=== PATIENT | female | born 1960 | race American Indian/Alaskan Native ===

== ENCOUNTER 2018-10-21 22:28 | Inpatient (IN) | payer OTHER, SELFPAY ==
[2018-10-21] MEDS ORDERED: ASPIRIN ONE (22:42)
--- NOTE | 2018-10-21 22:44 | Emergency Department Report ---
ED Altered Mental Status HPI - General Stated Complaint: BODY WEAKNESS/POSS STROKE Time Seen by Provider: 10/21/18 22:40 Source: patient Mode of arrival: Ambulatory Limitations: Altered Mental Status - History of Present Illness Initial Comments: Patient is a 58-year-old female that presents emergency room with acute onset of confusion and weakness. Patient is confused. Patient is A& O 1. Patient complains of right arm pain. Patient is moving all extremities. Patient am bulatory with assist to a wheelchair. Family bedside. History per family. Daughter states that the patient began complaining of chest pain at 8 PM tonight and approximately 45 minutes ago she became confused. Daughter states that the chest pain in the center of her chest radiating to both arms. Daughter states the pain was moderate. Daughter states that she also has shaking spells from time to time. MD Complaint: altered mental status, confusion, weakness -: Sudden Severity: severe Consistency of Symptoms: waxing and waning Associated Symptoms: chest pain, weakness, difficulty walking. denies: cough, shortness of breath, foul smelling urine - Related Data Allergies Allergy/AdvReac Type Severity Reaction Status Date / Time No Known Allergies Allergy Verified 10/22/18 01:27 ED Review of Systems ROS: Stated complaint: BODY WEAKNESS/POSS STROKE Other details as noted in HPI Comment: Unobtainable due to pts medical conditions ED Past Medical Hx - Past Medical History Previous Medical History?: Yes Hx Hypertension: Yes Hx Psychiatric Treatment: Yes (bipolar) - Surgical History Past Surgical History?: No - Family History Family history: no significant - Social History Smoking Status: Never Smoker Substance Use Type: None ED Physical Exam - General Limitations: Altered Mental Status General appearance: alert, in no apparent distress - Head Head exam: Present: atraumatic, normocephalic - Eye Eye exam: Present: normal appearance, PERRL Pupils: Present: normal accommodation - ENT ENT exam: Present: mucous membranes moist - Neck Neck exam: Present: normal inspection - Respiratory Respiratory exam: Present: normal lung sounds bilaterally. Absent: respiratory distress, wheezes, rales - Cardiovascular Cardiovascular Exam: Present: regular rate, normal rhythm. Absent: systolic murmur, diastolic murmur, rubs, gallop - GI/Abdominal GI/Abdominal exam: Present: soft, normal bowel sounds. Absent: distended, tenderness, guarding - Rectal Rectal exam: Present: deferred - Extremities Exam Extremities exam: Present: normal inspection, full ROM - Back Exam Back exam: Present: normal inspection, full ROM - Neurological Exam Neurological exam: Present: alert, altered - Psychiatric Psychiatric exam: Present: normal affect, normal mood - Skin Skin exam: Present: warm, dry, intact, normal color. Absent: rash - Assessment Assessment Interval: Baseline - Level of Consciousness 1a. Level of Consciousness: alert/keenly responsive - LOC Questions 1b. LOC Questions: answers 1 question correctly - LOC Command 1c. LOC Commands: performs tasks correctly - Best Gaze 2. Best Gaze: normal - Visual 3. Visual: no visual loss - Facial Palsy 4. Facial Palsy: normal symmetrical movement - Motor Arm 5a. Motor Arm Left: no drift 5b. Motor Arm Right: no drift - Motor Leg 6a. Motor Leg Left: no drift 6b. Motor Leg Right: no drift - Limb Ataxia 7. Limb Ataxia: absent - Sensory 8. Sensory: normal - Best Language 9. Best Language: no aphasia - Dysarthria 10. Dysarthria: normal - Extinction and Inattention 11. Extinction/Inattention: no abnormality - Scoring Total Score: 1 Stroke Severity: Minor Stroke ED Course Vital Signs 10/21/18 10/21/18 10/21/18 22:46 23:16 23:30 Pulse Rate 60 58 L 63 Respiratory 12 21 17 Rate Blood Pressure O2 Sat by Pulse 98 99 98 Oximetry 10/21/18 10/22/18 10/22/18 23:45 00:00 01:07 Pulse Rate 66 61 61 Respiratory 17 20 13 Rate Blood Pressure 162/96 162/96 162/96 O2 Sat by Pulse 96 99 97 Oximetry - Reevaluation(s) Reevaluation #1: Based on patient's exam and history.. We will consult tele-neurology 10/21/18 22:43 Patient sent for head CT 10/21/18 22:56 Discussed all results with the family and patient. Patient will be admitted to the hospitalist service. Family agrees with plan of care. 10/22/18 00:23 - Consultations Consultation #1: Discussed case with neurologist, Dr. Campbell. Neurologist states he will see the patient after her head CT. 10/21/18 22:[address] done and neurologist is seeing the patient bedside monitor 10/21/18 23:25 Discussed case with neurologist. Neurologist recommends admission for seizure workup and EEG. 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 Rule out epileptic activity with EEG - attempt to capture spells. Recommendations: - EEG - attempt to capture spells with prolonged monitoring if possible - MRI brain wo - toxic/metabolic screening - seizure precautions - observation - neurology consult - discussed with ED MD Consultation #2: Hospitalist consulted for admission. Hospitalist to admit patient. Hospitalist to assume care patient. 10/22/18 00:24 - Lab Data Result diagrams: 10/21/18 23:33 10/21/18 23:33 Lab Results 10/21/18 10/21/18 10/21/18 Range/Units 23:33 23:33 23:33 WBC 5.9 (4.5-11.0) K/mm3 RBC 4.48 (3.65-5.03) M/mm3 Hgb 12.2 (10.1-14.3) gm/dl Hct 38.3 (30.3-42.9) % MCV 86 (79-97) fl MCH 27 L (28-32) pg MCHC 32 (30-34) % RDW 13.0 L (13.2-15.2) % Plt Count 191 (140-440) K/mm3 Lymph % (Auto) 33.2 (13.4-35.0) % Ocean % (Auto) 6.7 (0.0-7.3) % Eos % (Auto) 2.2 (0.0-4.3) % Baso % (Auto) 0.8 (0.0-1.8) % Lymph # 2.0 (1.2-5.4) K/mm3 Ocean # 0.4 (0.0-0.8) K/mm3 Eos # 0.1 (0.0-0.4) K/mm3 Baso # 0.0 (0.0-0.1) K/mm3 Seg Neutrophils % 57.1 (40.0-70.0) % Seg Neutrophils # 3.3 (1.8-7.7) K/mm3 Sodium 142 (137-145) mmol/L Potassium 4.1 (3.6-5.0) mmol/L Chloride 105.9 (98-107) mmol/L Carbon Dioxide 25 (22-30) mmol/L Anion Gap 15 mmol/L BUN 12 (7-17) mg/dL Creatinine 1.0 (0.7-1.2) mg/dL Estimated GFR > 60 ml/min BUN/Creatinine Ratio 12 % Glucose 109 H (65-100) mg/dL Lactic Acid 1.00 (0.7-2.0) mmol/L Calcium 8.8 (8.4-10.2) mg/dL Total Bilirubin 0.20 (0.1-1.2) mg/dL AST 14 (5-40) units/L ALT 12 (7-56) units/L Alkaline Phosphatase 116 (35-129) units/L Total Creatine Kinase (30-135) units/L Troponin T (0.00-0.029) ng/mL Total Protein 6.3 (6.3-8.2) g/dL Albumin 3.9 (3.9-5) g/dL Albumin/Globulin Ratio 1.6 % Acetaminophen (10.0-30.0) ug/mL Plasma/Serum Alcohol (0-0.07) % 10/21/18 10/21/18 10/21/18 Range/Units 23:33 23:33 23:33 WBC (4.5-11.0) K/mm3 RBC (3.65-5.03) M/mm3 Hgb (10.1-14.3) gm/dl Hct (30.3-42.9) % MCV (79-97) fl MCH (28-32) pg MCHC (30-34) % RDW (13.2-15.2) % Plt Count (140-440) K/mm3 Lymph % (Auto) (13.4-35.0) % Ocean % (Auto) (0.0-7.3) % Eos % (Auto) (0.0-4.3) % Baso % (Auto) (0.0-1.8) % Lymph # (1.2-5.4) K/mm3 Ocean # (0.0-0.8) K/mm3 Eos # (0.0-0.4) K/mm3 Baso # (0.0-0.1) K/mm3 Seg Neutrophils % (40.0-70.0) % Seg Neutrophils # (1.8-7.7) K/mm3 Sodium (137-145) mmol/L Potassium (3.6-5.0) mmol/L Chloride (98-107) mmol/L Carbon Dioxide (22-30) mmol/L Anion Gap mmol/L BUN (7-17) mg/dL Creatinine (0.7-1.2) mg/dL Estimated GFR ml/min BUN/Creatinine Ratio % Glucose (65-100) mg/dL Lactic Acid (0.7-2.0) mmol/L Calcium (8.4-10.2) mg/dL Total Bilirubin (0.1-1.2) mg/dL AST (5-40) units/L ALT (7-56) units/L Alkaline Phosphatase (35-129) units/L Total Creatine Kinase 100 (30-135) units/L Troponin T < 0.010 (0.00-0.029) ng/mL Total Protein (6.3-8.2) g/dL Albumin (3.9-5) g/dL Albumin/Globulin Ratio % Acetaminophen < 5.0 L (10.0-30.0) ug/mL Plasma/Serum Alcohol < 0.01 (0-0.07) % - EKG Data -: EKG Interpreted by Me EKG shows normal: sinus rhythm, axis, intervals, QRS complexes, ST-T waves Rate: normal - Radiology Data Radiology results: report reviewed, image reviewed interpreted by me: Normal limits chest x-ray PROCEDURE: CT HEAD/BRAIN WO CON TECHNIQUE: Computerized tomography of the head was performed without contrast material. CT DOSE LENGTH PRODUCT: 928.1 mGycm HISTORY: Altered Mental Status COMPARISONS: None . FINDINGS: Skull and scalp: Normal . Paranasal sinuses: Mucosal thickening is noted involving the right ethmoid sinuses. . Ventricles and subarachnoid spaces: Normal . Cerebrum: No evidence of hemorrhage, acute infarction or mass . Cerebellum and brainstem: No evidence of hemorrhage, acute infarction or mass . Vasculature: Normal . Other: None . ASPECTS: 10 IMPRESSION: No acute intracranial abnormality Chronic ethmoid sinusitis. - Medical Decision Making Patient is a 58-year-old female that presents to emergency room with multiple complaints. Patient was occluded chest pain, altered mental status and confusion, seizure like activity and shaking. Telemetry neurology was consulted during ER stay. Total neurology recommends admission and an EEG as an inpatient as well as an MRI. Recommendations received. Patient was admitted to the hospitalist service. Patient's labs unremarkable. Patient's head CT negative. Patient chest x-ray negative. - Differential Diagnosis seizure. Confusion. EMS. Chest pain. ACS. Psychogenic Critical Care Time: Yes Critical care attestation.: If time is entered above; I have spent that time in minutes in the direct care of this critically ill patient, excluding procedure time. Critical Care Time: 45 minutes ED Disposition Clinical Impression: Confusion, Weakness, Seizure-like activity Altered mental state Qualifiers: Altered mental status type: unspecified Qualified Code(s): R41.82 - Altered mental status, unspecified Chest pain Qualifiers: Chest pain type: unspecified Qualified Code(s): R07.9 - Chest pain, unspecified Disposition: DC-09 OP ADMIT IP TO THIS HOSP Is pt being admited?: Yes Does the pt Need Aspirin: No Condition: Critical Time of Disposition: 00:23
[2018-10-21] MEDS ORDERED: NACL 0.9% 1000 ML 1,000 ML IV ONE (22:49)
--- NOTE | 2018-10-21 23:22 | Cat Scan Report ---
PROCEDURE: CT HEAD/BRAIN WO CON TECHNIQUE: Computerized tomography of the head was performed without contrast material. CT DOSE LENGTH PRODUCT: 928.1 mGycm HISTORY: Altered Mental Status COMPARISONS: None . FINDINGS: Skull and scalp: Normal . Paranasal sinuses: Mucosal thickening is noted involving the right ethmoid sinuses. . Ventricles and subarachnoid spaces: Normal . Cerebrum: No evidence of hemorrhage, acute infarction or mass . Cerebellum and brainstem: No evidence of hemorrhage, acute infarction or mass . Vasculature: Normal . Other: None . ASPECTS: 10 IMPRESSION: No acute intracranial abnormality Chronic ethmoid sinusitis. This document is electronically signed by Thomas Crocker MD., October 21 2018 11:20:50 PM ET
--- NOTE | 2018-10-21 23:36 | Consultation ---
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 Rule out epileptic activity with EEG - attempt to capture spells. Recommendations: - EEG - attempt to capture spells with prolonged monitoring if possible - MRI brain wo - toxic/metabolic screening - seizure precautions - observation - neurology consult - discussed with ED MD CC: AMS History of Present Illness: STAT consult called by ED 58 year old woman brought by EMS for a spell. Patient's daughter is at bedside. Daughter states since she was little (daughter now 34) that the patient has experienced spells of shaking when she is under stress. These happen very frequently and for the past 2 weeks have happened daily. Patient refuses to have these evaluated. Patient will have eyes open and have fine non- rhythmic/asynchronous shaking of the extremities. Tonight the patient was at her granddaughter's recital. Daughter stepped away and the patient had a spell. Bystanders called 911 when daughter was away. Patient is now seemingly confused. Daughter states this is typical of her spells. Daughter states patient has been under a lot of stress the past 2 weeks. Diagnostic Testing: CT head wo - nothing acute Vital Signs: Reviewed in EMR Exam: She is laying in bed with eyes closed, opens them to name/voice. She will follow commands. She tends to perseverate. Speech is clear. Attending to both sides. She makes odd movements with her mouth. Gaze centered with full horizontal motility. Blinks to threat OU. Face symmetric. She will sustain antigravity in the limbs. She can tell us sensation is symmetric in the limbs. No obvious ataxia. Medical Decision Making: - Extensive number of diagnosis or management options are considered above. - Extensive amount of complex data reviewed. - High risk of complication and/or morbidity or mortality are associated with differential diagnostic considerations above. - There may be uncertain outcome and increased probability of prolonged functional impairment or high probability of severe prolonged functional impairment associated with some of these differential diagnosis. Medical Data Reviewed: 1.Data reviewed include clinical labs, radiology, Medical Tests; 2.Tests results discussed w/performing or interpreting physician; 3.Obtaining/reviewing old medical records; 4.Obtaining case history from another source; 5.Independent review of image, tracing or specimen. Patient was informed the Neurology Consult would happen via telehealth (remote video) and consented to receiving care in this manner. Medications and Allergies Active Meds: Active Medications Sodium Chloride (Nacl 0.9% 1000 Ml) 1,000 mls @ 999 mls/hr IV BOLUS ONE Stop: 10/21/18 23:49
[2018-10-22 00:04] LABS: Basophils % (Auto) 0.8 % (0.0-1.8); Eosinophils # (Auto) 0.1 K/mm3 (0.0-0.4); Eosinophils % (Auto) 2.2 % (0.0-4.3); Hematocrit 38.3 % (30.3-42.9); Hemoglobin 12.2 gm/dl (10.1-14.3); Lymphocytes % (Auto) 33.2 % (13.4-35.0); Mean Corpuscular HGB Conc 32 % (30-34); Mean Corpuscular Volume 86 fl (79-97); Monocytes # (Auto) 0.4 K/mm3 (0.0-0.8); Monocytes % (Auto) 6.7 % (0.0-7.3); Platelet Count 191 K/mm3 (140-440); Red Blood Count 4.48 M/mm3 (3.65-5.03)
[2018-10-22 00:19] LABS: Alanine Aminotransferase 12 units/L (7-56); Albumin 3.9 g/dL (3.9-5); BUN/Creatinine Ratio 12; Blood Urea Nitrogen 12 mg/dL (7-17); Calcium 8.8 mg/dL (8.4-10.2); Hemolysis Index 1
--- NOTE | 2018-10-22 00:36 | XRay Report ---
PROCEDURE: XR CHEST 1V AP TECHNIQUE: A portable upright view of the chest was submitted. HISTORY: Altered Mental Status COMPARISONS: None FINDINGS: The heart size and mediastinum appear normal. The lungs are clear. Pleural fluid is not seen. The bon es and soft tissues appear well-maintained. IMPRESSION: No acute cardiopulmonary process.. This document is electronically signed by Miguel Farris MD., October 22 2018 12:34:19 AM ET
--- NOTE | 2018-10-22 00:58 | History and Physical Report ---
History of Present Illness Date of examination: 10/22/18 History of present illness: 58-year-old woman with a history of hypertension, bipolar her previous family member however these family members at bedside denies that she has any medical problems, she was brought to the emergency room complaining of chest pain. Pain is in the epigastric area which she described as someone standing on her chest, constant, intensity 5/10, no radiation, can't identify exacerbating factors. Admits to shortness of breath, no nausea vomiting, diaphoresis or palpitation. Also complained that the right arm has been weak. Family members state that she became confused and started having these jerking of the upper body. The patient if she had any seizures today, she started shaking the left arm profusely, she was alert during this episode PAST MEDICAL HISTORY: PAST SURGICAL HISTORY: Gastric bypass SOCIAL HISTORY: Denies alcohol, tobacco, drugs FAMILY HISTORY: Hypertension Medications and Allergies Allergies Allergy/AdvReac Type Severity Reaction Status Date / Time No Known Allergies Allergy Verified 10/22/18 01:27 Home Medications Medication Instructions Recorded Confirmed Last Taken Type Melatonin 10 mg PO QHS #30 capsule 10/25/18 Unknown Rx levETIRAcetam [Keppra TAB] 750 mg PO BID #60 tablet 10/25/18 Unknown Rx Exam - Physical Exam Narrative exam: Gen. appearance: Patient lying in bed, no apparent distress HEENT: Normocephalic, atraumatic, pupils equally round and reactive to light, extraocular movement intact, and no sclericterus,. No JVD or thyromegaly or nodule,neck supple, no carotid bruit ,mucous membranes moist, no exudate or erythema Heart: S1, S2, regular rate and rhythm Lungs: Clear bilaterally, breathing comfortable Abdomen: Positive bowel sounds, non-tender, nondistended, no organomegaly Extremity:no edema cyanosis, clubbing Skin: no rash, dry, warm Neuro: Oriented 3, cranial nerves II-12 intact, speech is fluent, motor poor effort, difficult to assess Results - Labs CBC & Chem 7: 10/21/18 23:33 10/21/18 23:33 Labs: Abnormal lab results 10/21/18 10/21/18 10/21/18 Range/Units 23:33 23:33 23:33 MCH 27 L (28-32) pg RDW 13.0 L (13.2-15.2) % Glucose 109 H (65-100) mg/dL Acetaminophen < 5.0 L (10.0-30.0) ug/mL - Imaging and Cardiology Chest x-ray: report reviewed CT Scan - head: report reviewed Assessment and Plan Assessment Right upper extremity weakness chest pain Pseudoseizure and Hypertension ? Bipolar Plan Admit to medicine Obtain MRI of the head and neck, echo, stress test Check cardiac enzymes Consult neurology, PT, OT Start aspirin, statin DVT prophylaxis
[2018-10-22] MEDS ORDERED: ZOFRAN IV PRN (01:01)
[2018-10-22] MEDS ORDERED: REGLAN PO PRN (01:01)
[2018-10-22] MEDS ORDERED: MILK OF MAGNESIA PO PRN (01:01)
[2018-10-22] MEDS ORDERED: DULCOLAX PR PRN (01:01)
[2018-10-22] MEDS ORDERED: SODIUM CHLORIDE FLUSH SYRINGE 10 ML IV PRN (01:01)
[2018-10-22] MEDS ORDERED: TYLENOL ONE (01:16)
[2018-10-22] MEDS: ASPIRIN PO SCH ×2 (01:51→10:31)
[2018-10-22 02:12] LABS: Bilirubin,Urine NEG (Negative); Blood,Urine NEG (Negative); Color,Urine Yellow (Yellow); Mucus,Urine FEW /HPF; Protein,Urine <15 mg/dL mg/dL (Negative)
[2018-10-22 02:14] LABS: Amphetamine Screen,Urine PRESUMPTIVE NEGATIVE; Benzodiazepines Screen,Urine PRESUMPTIVE NEGATIVE; Cannabinoid Screen,Urine PRESUMPTIVE NEGATIVE; Cocaine Screen,Urine PRESUMPTIVE NEGATIVE; Methadone Screen,Urine PRESUMPTIVE NEGATIVE; Opiate Screen,Urine PRESUMPTIVE NEGATIVE
[2018-10-22 02:23] LABS: Creatine Kinase MB < 1.0 ng/mL (0.0-4.0)
[2018-10-22] MEDS: TYLENOL PO PRN ×2 (08:42→14:26)
[2018-10-22] MEDS ORDERED: LOVENOX SUB-Q SCH (10:00)
[2018-10-22] MEDS: LOVENOX SUB-Q SCH (10:32)
--- NOTE | 2018-10-22 11:03 | Progress Note ---
Subjective Date of service: 10/22/18 Interval history: see my note on the patient I am inclined to believe this is spinal cord MS based do not see rash of zoster this should be considered as well Thanks explained dx and w/u process to patient did review the ED notes no additional comment Objective - Vital Sign Vital Signs - 12hr 10/21/18 10/21/18 10/21/18 23:16 23:30 23:45 Temperature Pulse Rate 58 L 63 66 Respiratory 21 17 17 Rate Blood Pressure 162/96 O2 Sat by Pulse 99 98 96 Oximetry 10/22/18 10/22/18 10/22/18 00:00 00:15 00:30 Temperature Pulse Rate 61 60 66 Respiratory 20 16 12 Rate Blood Pressure 162/96 155/91 155/91 O2 Sat by Pulse 99 96 97 Oximetry 10/22/18 10/22/18 10/22/18 00:46 01:07 01:15 Temperature Pulse Rate 59 L 61 57 L Respiratory 19 13 14 Rate Blood Pressure 163/77 162/96 153/78 O2 Sat by Pulse 96 97 85 Oximetry 10/22/18 10/22/18 10/22/18 01:31 01:45 02:01 Temperature Pulse Rate 63 58 L 62 Respiratory 12 15 16 Rate Blood Pressure 142/66 142/66 142/66 O2 Sat by Pulse 98 96 98 Oximetry 10/22/18 10/22/18 10/22/18 02:15 02:31 02:45 Temperature Pulse Rate 70 67 61 Respiratory 13 14 14 Rate Blood Pressure 142/66 142/66 142/66 O2 Sat by Pulse 97 99 97 Oximetry 10/22/18 10/22/18 10/22/18 03:01 03:15 03:31 Temperature Pulse Rate 62 72 66 Respiratory 12 13 14 Rate Blood Pressure 142/66 142/66 135/72 O2 Sat by Pulse 98 96 99 Oximetry 10/22/18 10/22/18 10/22/18 03:45 04:01 04:11 Temperature Pulse Rate 56 L 63 68 Respiratory 17 16 11 L Rate Blood Pressure 135/72 131/69 131/69 O2 Sat by Pulse 98 87 98 Oximetry 10/22/18 10/22/18 04:21 08:14 Temperature 97.6 F Pulse Rate 55 L 52 L Respiratory 15 16 Rate Blood Pressure 131/69 130/74 O2 Sat by Pulse 97 Oximetry - Laboratory Findings CBC and BMP: 10/21/18 23:33 10/21/18 23:33 Abnormal Lab Findings: Abnormal Labs 10/21/18 10/21/18 10/21/18 23:33 23:33 23:33 MCH 27 L RDW 13.0 L Glucose 109 H Acetaminophen < 5.0 L
[2018-10-22] MEDS ORDERED: ATIVAN ONE (13:25)
[2018-10-22] MEDS ORDERED: ATIVAN IV ONE (13:53)
--- NOTE | 2018-10-22 14:56 | Consultation ---
HISTORY OF PRESENT ILLNESS: This 58-year-old black female who was at a ____ one of her relatives. Apparently, she had the sudden onset of a very intense tingling of the fingers of her hand and a quickly developed pain in her chest, shoulder and may have had developed headache and pain on the right side. She experienced difficulty breathing, chest discomfort was noted. She was then transported to the hospital by family members seen in the Emergency Room. She was noted to be alert and stable. She had a CT scan of the head which was unremarkable. Teleneurology consult was obtained. I reviewed those findings and the patient was further assessed. At this point, she feels somewhat better, still has a vague discomfort of the right arm, right face. No headache. She is fully alert, conscious and responsive. Examination reveals her to have no focal weakness. Cranial nerves are intact. Speech is clear. Neck is supple, no tremors and no asterixis. She has some slight neck discomfort on the right side. I did examine her arm. I do not see any evidence of zoster appearing on the arm or shoulder area or in the facial or neck area. IMPRESSION: This patient's onset of symptoms are certainly curious. She takes no medications, does not have any chronic medical problems. She is a healthy 58-year-old person that otherwise would have no reason to have the onset of such symptoms. I am struck by the fact that there was initially a segmental radicular component to the discomfort, which almost indicates that this would have to be spinal cord in origin as the generally a radicular type symptoms are not seen based on the brain based phenomena. In addition, she also had chest pain and some neck pain at the same time, which to me would be very atypical for a STOCK CUTTER lesion within the sensory nucleus of the thalamus or any cortical sensory structures. Therefore, more directly attention is paid to the spinal cord, but nonetheless, this could also be a brainstem sensory nucleus and may represent symptoms of multiple sclerosis, given her lack of additional history. We would recommend getting an MRI of the spinal cord of the brain and further assess the patient's condition. JOB# [id number] BEVERLY/EMORY
[2018-10-22] MEDS: KEPPRA PO SCH ×2 (16:02→23:24)
[2018-10-22] MEDS ORDERED: KEPPRA 750 MG in NACL 0.9% 100 ML IV ONE (23:45)
[2018-10-23 07:30] LABS: Chol/HDL Ratio 3.75 %
--- NOTE | 2018-10-23 08:04 | Progress Note ---
Subjective Date of service: 10/23/18 Interval history: nurse called me last evening and described episode that sounded like focal seizure therefore Keppra started... still need EED and MRI of brain and spinal cord this is being addressd as this could still be Multiple Sclerosis Objective - Vital Sign Vital Signs - 12hr 10/22/18 10/22/18 10/22/18 20:41 21:00 21:05 Temperature 98.2 F Pulse Rate 93 H 79 Respiratory 18 Rate Blood Pressure 127/68 O2 Sat by Pulse 91 99 Oximetry 10/22/18 10/23/18 10/23/18 22:00 00:07 05:00 Temperature 97.5 F L Pulse Rate 65 54 L Respiratory 20 18 Rate Blood Pressure 138/77 O2 Sat by Pulse 99 97 Oximetry 10/23/18 05:58 Temperature 97.6 F Pulse Rate 55 L Respiratory 18 Rate Blood Pressure 119/59 O2 Sat by Pulse 97 Oximetry - Laboratory Findings CBC and BMP: 10/21/18 23:33 10/21/18 23:33 Abnormal Lab Findings: Abnormal Labs 10/21/18 10/21/18 10/21/18 23:33 23:33 23:33 MCH 27 L RDW 13.0 L Glucose 109 H LDL Cholesterol Direct Acetaminophen < 5.0 L 10/23/18 06:29 MCH RDW Glucose LDL Cholesterol Direct 157 H Acetaminophen
[2018-10-23] MEDS: TYLENOL PO PRN (08:34)
--- NOTE | 2018-10-23 11:06 | Magnetic Resonance Report ---
MRI BRAIN WITHOUT CONTRAST: 10/23/18 CLINICAL: Stroke. COMPARISON: 10/21/18 CT Head TECHNIQUE: Axial diffusion, T1, T2, gradient echo T2*, coronal and axial FLAIR and sagittal T1 sequences on a 1.5 Arianna magnet. FINDINGS: Normal ventricles and sulci. No restricted diffusion. A single tiny right frontoparietal white matter focal hyperintensity on FLAIR and T2. No other abnormal signal. No chronic microbleeds on the gradient echo sequence. No mass or mass effect. No hemorrhage, edema or extra-axial collection. Normal pituitary and optic chiasm. The brainstem and cerebellum are normal. Intact vascular flow voids. Bilateral ethmoid sinusitis with mucoperiosteal thickening. The rest of the sinuses are clear. The orbits, and soft tissues are normal. Normal calvarium and skull base. IMPRESSION: No evidence of acute/subacute infarct or hemorrhage. A single nonspecific right frontoparietal white matter focal hyperintensity on FLAIR and T2. Ethmoid sinusitis.
--- NOTE | 2018-10-23 11:21 | Magnetic Resonance Report ---
MRA HEAD WITHOUT CONTRAST: 10/23/18 CLINICAL: Stroke. TECHNIQUE: Axial 3-D [id number] MR angiography of the [place] with review of axial source images. FINDINGS: Intact [place] with no aneurysm, stenosis or occlusion. Symmetric blood flow in the anterior, middle and posterior cerebral arteries. Normal basilar and vertebral arteries. IMPRESSION: Normal study.
[2018-10-23] MEDS: LOVENOX SUB-Q SCH (11:23)
[2018-10-23] MEDS: KEPPRA PO SCH ×2 (11:23→21:24)
[2018-10-23] MEDS: ASPIRIN PO SCH (11:23)
--- NOTE | 2018-10-23 12:05 | Magnetic Resonance Report ---
MRI CERVICAL SPINE WITHOUT CONTRAST: 10/23/18 07:37:00 CLINICAL: Right arm pain. TECHNIQUE: Sagittal T1,T2 and STIR and axial gradient T2* sequences on a 1.5 Arianna magnet. FINDINGS:Motion degrades the quality of the exam on the sagittal STIR and sagittal T1 sequences. Normal vertebral body height and alignment. Moderate degenerative disc disease with anterior osteophytes at C4-5 and C5-6 and mild disc space narrowing at C5-6. Uniform decreased disc signal at all levels. Normal marrow signal. No bone lesion. Cerebellar tonsils are normal position. Spinal cord is normal size with normal signal. C2-3: Intact. C3-4:Moderate circumferential disc bulge. Right facet hypertrophy and a moderate size right uncal and foraminal osteophyte producing narrowing of the right neural foramen. C4-5: Moderate circumferential disc bulge. Bilateral uncal osteophytes and foraminal osteophytes, right larger than left producing moderate bilateral neural foraminal narrowing, right greater than left. C5-6:Intact. C6-7:Intact. C7-T1:Intact. IMPRESSION: 1. Moderate degenerative disc disease with disc bulges and osteophytes producing neural foraminal narrowing at C4-5 and C5-6. The greatest narrowing is on the right at C5-6. 2. No significant spinal canal stenosis and no cord lesion.
[2018-10-23] MEDS: ATIVAN IV PRN ×2 (13:12→23:28)
--- NOTE | 2018-10-23 13:32 | Progress Note ---
Assessment and Plan Assessment and plan: Questionable new seizure -On Keppra -MRI brain negative for acute findings -MRI cervical spine showed degenerative disc disease C4-C6 -EEG pending -Neurology following Chest pain, rule out ACS -Serial troponin levels negative -Stress test canceled due to recurrent seizure -Echocardiogram pending Hypertension -Controlled Disposition: For discharge when medically stable History Interval history: It was reported that patient had seizure overnight for which she was started on Keppra. No other new complaints Hospitalist Physical - Constitutional Vitals: Temp Pulse Resp BP Pulse Ox 98.3 F 76 18 136/84 96 10/23/18 12:21 10/23/18 12:21 10/23/18 12:21 10/23/18 08:29 10/23/18 08:29 General appearance: Present: no acute distress - EENT Eyes: Present: PERRL, EOM intact ENT: hearing intact, clear oral mucosa - Neck Neck: Present: supple - Respiratory Respiratory effort: normal Respiratory: bilateral: CTA - Cardiovascular Rhythm: regular Heart Sounds: Present: S1 & S2 - Extremities Extremities: No edema - Abdominal General gastrointestinal: soft, non-tender, normal bowel sounds - Integumentary Integumentary: Present: clear, warm, dry - Neurologic Neurologic: moves all extremities Results - Labs CBC & Chem 7: 10/21/18 23:33 10/21/18 23:33 Labs: Laboratory Last Values WBC 5.9 K/mm3 (4.5-11.0) 10/21/18 23:33 RBC 4.48 M/mm3 (3.65-5.03) 10/21/18 23:33 Hgb 12.2 gm/dl (10.1-14.3) 10/21/18 23:33 Hct 38.3 % (30.3-42.9) 10/21/18 23:33 MCV 86 fl (79-97) 10/21/18 23:33 MCH 27 pg (28-32) L 10/21/18 23:33 MCHC 32 % (30-34) 10/21/18 23:33 RDW 13.0 % (13.2-15.2) L 10/21/18 23:33 Plt Count 191 K/mm3 (140-440) 10/21/18 23:33 Lymph % (Auto) 33.2 % (13.4-35.0) 10/21/18 23:33 [place] % (Auto) 6.7 % (0.0-7.3) 10/21/18 23:33 Eos % (Auto) 2.2 % (0.0-4.3) 10/21/18 23:33 Baso % (Auto) 0.8 % (0.0-1.8) 10/21/18 23:33 Lymph # 2.0 K/mm3 (1.2-5.4) 10/21/18 23:33 [place] # 0.4 K/mm3 (0.0-0.8) 10/21/18 23:33 Eos # 0.1 K/mm3 (0.0-0.4) 10/21/18 23:33 Baso # 0.0 K/mm3 (0.0-0.1) 10/21/18 23:33 Seg Neutrophils % 57.1 % (40.0-70.0) 10/21/18 23:33 Seg Neutrophils # 3.3 K/mm3 (1.8-7.7) 10/21/18 23:33 Sodium 142 mmol/L (137-145) 10/21/18 23:33 Potassium 4.1 mmol/L (3.6-5.0) 10/21/18 23:33 Chloride 105.9 mmol/L (98-107) 10/21/18 23:33 Carbon Dioxide 25 mmol/L (22-30) 10/21/18 23:33 Anion Gap 15 mmol/L 10/21/18 23:33 BUN 12 mg/dL (7-17) 10/21/18 23:33 Creatinine 1.0 mg/dL (0.7-1.2) 10/21/18 23:33 Estimated GFR > 60 ml/min 10/21/18 23:33 BUN/Creatinine Ratio 12 % 10/21/18 23:33 Glucose 109 mg/dL (65-100) H 10/21/18 23:33 Lactic Acid 1.00 mmol/L (0.7-2.0) 10/21/18 23:33 Calcium 8.8 mg/dL (8.4-10.2) 10/21/18 23:33 Total Bilirubin 0.20 mg/dL (0.1-1.2) 10/21/18 23:33 AST 14 units/L (5-40) 10/21/18 23:33 ALT 12 units/L (7-56) 10/21/18 23:33 Alkaline Phosphatase 116 units/L (35-129) 10/21/18 23:33 Total Creatine Kinase 86 units/L (30-135) 10/22/18 07:19 CK-MB (CK-2) 1.0 ng/mL (0.0-4.0) 10/22/18 07:19 CK-MB (CK-2) Rel Index 1.1 (0-4) 10/22/18 07:19 Troponin T < 0.010 ng/mL (0.00-0.029) 10/22/18 07:19 Total Protein 6.3 g/dL (6.3-8.2) 10/21/18 23:33 Albumin 3.9 g/dL (3.9-5) 10/21/18 23:33 Albumin/Globulin Ratio 1.6 % 10/21/18 23:33 Triglycerides 59 mg/dL (2-149) 10/23/18 06:29 Cholesterol 199 mg/dL (50-199) 10/23/18 06:29 LDL Cholesterol Direct 157 mg/dL (50-130) H 10/23/18 06:29 HDL Cholesterol 53 mg/dL (40-59) 10/23/18 06:29 Cholesterol/HDL Ratio 3.75 % 10/23/18 06:29 Urine Color Yellow (Yellow) 10/22/18 01:30 Urine Turbidity Slightly-cloudy (Clear) 10/22/18 01:30 Urine pH 5.0 (5.0-7.0) 10/22/18 01:30 Ur Specific [place] 1.025 (1.003-1.030) 10/22/18 01:30 Urine Protein <15 mg/dl mg/dL (Negative) 10/22/18 01:30 Urine Glucose (UA) Neg mg/dL (Negative) 10/22/18 01:30 Urine Ketones Tr mg/dL (Negative) 10/22/18 01:30 Urine Blood Neg (Negative) 10/22/18 01:30 Urine Nitrite Neg (Negative) 10/22/18 01:30 Urine Bilirubin Neg (Negative) 10/22/18 01:30 Urine Urobilinogen 4.0 mg/dL (<2.0) 10/22/18 01:30 Ur Leukocyte Esterase Neg (Negative) 10/22/18 01:30 Urine WBC (Auto) 3.0 /HPF (0.0-6.0) 10/22/18 01:30 Urine RBC (Auto) 1.0 /HPF (0.0-6.0) 10/22/18 01:30 U Epithel Cells (Auto) 6.0 /HPF (0-13.0) 10/22/18 01:30 Urine Mucus Few /HPF 10/22/18 01:30 Urine Opiates Screen Presumptive negative 10/22/18 01:30 Urine Methadone Screen Presumptive negative 10/22/18 01:30 Acetaminophen < 5.0 ug/mL (10.0-30.0) L 10/21/18 23:33 Ur Barbiturates Screen Presumptive negative 10/22/18 01:30 Ur Phencyclidine Scrn Presumptive negative 10/22/18 01:30 Ur Amphetamines Screen Presumptive negative 10/22/18 01:30 U Benzodiazepines Scrn Presumptive negative 10/22/18 01:30 Urine Cocaine Screen Presumptive negative 10/22/18 01:30 U Marijuana (THC) Screen Presumptive negative 10/22/18 01:30 Drugs of Abuse Note Disclamer 10/22/18 01:30 Plasma/Serum Alcohol < 0.01 % (0-0.07) 10/21/18 23:33 Active Medications - Current Medications Current Medications: Generic Name Dose Route Start Last Admin Trade Name Freq PRN Reason Stop Dose Admin Acetaminophen 650 mg 10/22/18 01:01 10/23/18 08:34 Tylenol PO 650 mg Q4H PRN Administration Pain, Mild (1-3) Aspirin 325 mg 10/21/18 23:00 10/23/18 11:23 Aspirin PO 325 mg QDAY LEONID Administration Atorvastatin Calcium 40 mg 10/22/18 22:00 10/22/18 23:24 Lipitor PO Not Given QHS [facility] Bisacodyl 10 mg 10/22/18 01:01 Dulcolax [place] QDAY PRN Constipation Enoxaparin Sodium 40 mg 10/22/18 10:00 10/23/18 11:23 Lovenox SUB-Q 40 mg QDAY@1000 LEONID Administration Levetiracetam 750 mg 10/22/18 15:40 10/23/18 11:23 Keppra PO 750 mg BID LEONID Administration Lorazepam 1 mg 10/22/18 21:56 10/23/18 13:12 Ativan IV 1 mg Q4H PRN Administration Seizures Magnesium Hydroxide 30 ml 10/22/18 01:01 Milk Of Magnesia PO Q4H PRN Constipation Metoclopramide HCl 10 mg 10/22/18 01:01 Reglan PO Q6H PRN Nausea And Vomiting Ondansetron HCl 4 mg 10/22/18 01:01 Zofran IV Q8H PRN Nausea And Vomiting Sodium Chloride 10 ml 10/22/18 01:01 Sodium Chloride Flush Syringe 10 Ml IV PRN PRN LINE FLUSH
[2018-10-23] MEDS: PROTONIX PO SCH (16:11)
--- NOTE | 2018-10-23 16:21 | Progress Note ---
Subjective Date of service: 10/23/18 Interval history: MRI shows disc disease and radiculopathy the MRI of brain shows single white matter " lesion" on the right side which DOES NOT fit with symptoms suspect spinal radiculopathy of right C5-6 can go home Objective - Vital Sign Vital Signs - 12hr 10/23/18 10/23/18 10/23/18 05:00 05:58 08:29 Temperature 97.6 F Pulse Rate 54 L 55 L 70 Pulse Rate [ Apical] Pulse Rate [ Left Radial] Pulse Rate [ Right Radial] Respiratory 18 18 Rate Blood Pressure 119/59 136/84 O2 Sat by Pulse 97 96 Oximetry 10/23/18 10/23/18 10/23/18 08:30 10:00 12:21 Temperature 98.1 F 98.3 F Pulse Rate 76 Pulse Rate [ 76 Apical] Pulse Rate [ 76 Left Radial] Pulse Rate [ 76 Right Radial] Respiratory 18 18 Rate Blood Pressure O2 Sat by Pulse 99 Oximetry - Laboratory Findings CBC and BMP: 10/21/18 23:33 10/21/18 23:33 Abnormal Lab Findings: Abnormal Labs 10/21/18 10/21/18 10/21/18 23:33 23:33 23:33 MCH 27 L RDW 13.0 L Glucose 109 H LDL Cholesterol Direct Acetaminophen < 5.0 L 10/23/18 06:29 MCH RDW Glucose LDL Cholesterol Direct 157 H Acetaminophen
[2018-10-24] MEDS: ASPIRIN PO SCH (10:53)
[2018-10-24] MEDS: KEPPRA PO SCH ×2 (10:53→22:00)
[2018-10-24] MEDS: LOVENOX SUB-Q SCH (10:54)
[2018-10-24] MEDS: PROTONIX PO SCH (11:06)
[2018-10-24] MEDS: TYLENOL PO PRN ×2 (14:41→22:06)
--- NOTE | 2018-10-24 14:44 | Progress Note ---
Assessment and Plan Assessment and plan: Questionable new onset seizure -Stable on oral Keppra -MRI brain negative for acute findings -MRI cervical spine showed degenerative disc disease C4-C6 -EEG pending -Neurology signed off Chest pain, rule out ACS -Serial troponin levels negative -Stress test rescheduled for tomorrow due to recent seizure -Echocardiogram showed EF of 50-55% with diastolic dysfunction Hypertension -Controlled Disposition: For discharge tomorrow if stress test is negative History Interval history: Pt has no new complaints. No seizure reported overnight Hospitalist Physical - Constitutional Vitals: Temp Pulse Resp BP Pulse Ox 97.5 F L 73 18 112/54 98 10/24/18 12:43 10/24/18 12:43 10/24/18 12:43 10/24/18 12:43 10/24/18 12:43 General appearance: Present: no acute distress - EENT Eyes: Present: PERRL, EOM intact ENT: hearing intact, clear oral mucosa - Neck Neck: Present: supple - Respiratory Respiratory effort: normal Respiratory: bilateral: CTA - Cardiovascular Rhythm: regular Heart Sounds: Present: S1 & S2 - Extremities Extremities: No edema - Abdominal General gastrointestinal: soft, non-tender, normal bowel sounds - Integumentary Integumentary: Present: clear, warm, dry - Neurologic Neurologic: CNII-XII intact Results - Labs CBC & Chem 7: 10/21/18 23:33 10/21/18 23:33 Labs: Laboratory Last Values WBC 5.9 K/mm3 (4.5-11.0) 10/21/18 23:33 RBC 4.48 M/mm3 (3.65-5.03) 10/21/18 23:33 Hgb 12.2 gm/dl (10.1-14.3) 10/21/18 23:33 Hct 38.3 % (30.3-42.9) 10/21/18 23:33 MCV 86 fl (79-97) 10/21/18 23:33 MCH 27 pg (28-32) L 10/21/18 23:33 MCHC 32 % (30-34) 10/21/18 23:33 RDW 13.0 % (13.2-15.2) L 10/21/18 23:33 Plt Count 191 K/mm3 (140-440) 10/21/18 23:33 Lymph % (Auto) 33.2 % (13.4-35.0) 10/21/18 23:33 [place] % (Auto) 6.7 % (0.0-7.3) 10/21/18 23:33 Eos % (Auto) 2.2 % (0.0-4.3) 10/21/18 23:33 Baso % (Auto) 0.8 % (0.0-1.8) 10/21/18 23:33 Lymph # 2.0 K/mm3 (1.2-5.4) 10/21/18 23:33 [place] # 0.4 K/mm3 (0.0-0.8) 10/21/18 23: Eos # 0.1 K/mm3 (0.0-0.4) 10/21/18 23: Baso # 0.0 K/mm3 (0.0-0.1) 10/21/18 23:33 Seg Neutrophils % 57.1 % (40.0-70.0) 10/21/18 23:33 Seg Neutrophils # 3.3 K/mm3 (1.8-7.7) 10/21/18 23:33 Sodium 142 mmol/L (137-145) 10/21/18 23:33 Potassium 4.1 mmol/L (3.6-5.0) 10/21/18 23:33 Chloride 105.9 mmol/L (98-107) 10/21/18 23:33 Carbon Dioxide 25 mmol/L (22-30) 10/21/18 23:33 Anion Gap 15 mmol/L 10/21/18 23:33 BUN 12 mg/dL (7-17) 10/21/18 23:33 Creatinine 1.0 mg/dL (0.7-1.2) 10/21/18 23:33 Estimated GFR > 60 ml/min 10/21/18 23:33 BUN/Creatinine Ratio 12 % 10/21/18 23:33 Glucose 109 mg/dL (65-100) H 10/21/18 23:33 Lactic Acid 1.00 mmol/L (0.7-2.0) 10/21/18 23:33 Calcium 8.8 mg/dL (8.4-10.2) 10/21/18 23:33 Total Bilirubin 0.20 mg/dL (0.1-1.2) 10/21/18 23:33 AST 14 units/L (5-40) 10/21/18 23:33 ALT 12 units/L (7-56) 10/21/18 23:33 Alkaline Phosphatase 116 units/L (35-129) 10/21/18 23:33 Total Creatine Kinase 86 units/L (30-135) 10/22/18 07:19 CK-MB (CK-2) 1.0 ng/mL (0.0-4.0) 10/22/18 07:19 CK-MB (CK-2) Rel Index 1.1 (0-4) 10/22/18 07:19 Troponin T < 0.010 ng/mL (0.00-0.029) 10/22/18 07:19 Total Protein 6.3 g/dL (6.3-8.2) 10/21/18 23:33 Albumin 3.9 g/dL (3.9-5) 10/21/18 23:33 Albumin/Globulin Ratio 1.6 % 10/21/18 23:33 Triglycerides 59 mg/dL (2-149) 10/23/18 06:29 Cholesterol 199 mg/dL (50-199) 10/23/18 06:29 LDL Cholesterol Direct 157 mg/dL (50-130) H 10/23/18 06:29 HDL Cholesterol 53 mg/dL (40-59) 10/23/18 06:29 Cholesterol/HDL Ratio 3.75 % 10/23/18 06:29 Urine Color Yellow (Yellow) 10/22/18 01:30 Urine Turbidity Slightly-cloudy (Clear) 10/22/18 01:30 Urine pH 5.0 (5.0-7.0) 10/22/18 01:30 Ur Specific [place] 1.025 (1.003-1.030) 10/22/18 01:30 Urine Protein <15 mg/dl mg/dL (Negative) 10/22/18 01:30 Urine Glucose (UA) Neg mg/dL (Negative) 10/22/18 01:30 Urine Ketones Tr mg/dL (Negative) 10/22/18 01:30 Urine Blood Neg (Negative) 10/22/18 01:30 Urine Nitrite Neg (Negative) 10/22/18 01:30 Urine Bilirubin Neg (Negative) 10/22/18 01:30 Urine Urobilinogen 4.0 mg/dL (<2.0) 10/22/18 01:30 Ur Leukocyte Esterase Neg (Negative) 10/22/18 01:30 Urine WBC (Auto) 3.0 /HPF (0.0-6.0) 10/22/18 01:30 Urine RBC (Auto) 1.0 /HPF (0.0-6.0) 10/22/18 01:30 U Epithel Cells (Auto) 6.0 /HPF (0-13.0) 10/22/18 01:30 Urine Mucus Few /HPF 10/22/18 01:30 Urine Opiates Screen Presumptive negative 10/22/18 01:30 Urine Methadone Screen Presumptive negative 10/22/18 01:30 Acetaminophen < 5.0 ug/mL (10.0-30.0) L 10/21/18 23:33 Ur Barbiturates Screen Presumptive negative 10/22/18 01:30 Ur Phencyclidine Scrn Presumptive negative 10/22/18 01:30 Ur Amphetamines Screen Presumptive negative 10/22/18 01:30 U Benzodiazepines Scrn Presumptive negative 10/22/18 01:30 Urine Cocaine Screen Presumptive negative 10/22/18 01:30 U Marijuana (THC) Screen Presumptive negative 10/22/18 01:30 Drugs of Abuse Note Disclamer 10/22/18 01:30 Plasma/Serum Alcohol < 0.01 % (0-0.07) 10/21/18 23:33 Active Medications - Current Medications Current Medications: Generic Name Dose Route Start Last Admin Trade Name Freq PRN Reason Stop Dose Admin Acetaminophen 650 mg 10/22/18 01:01 10/23/18 08:34 Tylenol PO 650 mg Q4H PRN Administration Pain, Mild (1-3) Aspirin 325 mg 10/21/18 23:00 10/24/18 10:53 Aspirin PO 325 mg QDAY LEONID Administration Atorvastatin Calcium 40 mg 10/22/18 22:00 10/23/18 21:24 Lipitor PO 40 mg QHS LEONID Administration Bisacodyl 10 mg 10/22/18 01:01 Dulcolax [place] QDAY PRN Constipation Enoxaparin Sodium 40 mg 10/22/18 10:00 10/24/18 10:54 Lovenox SUB-Q 40 mg QDAY@1000 LEONID Administration Levetiracetam 750 mg 10/22/18 15:40 10/24/18 10:53 Keppra PO 750 mg BID LEONID Administration Lorazepam 1 mg 10/22/18 21:56 10/23/18 23:28 Ativan IV 1 mg Q4H PRN Administration Seizures Magnesium Hydroxide 30 ml 10/22/18 01:01 Milk Of Magnesia PO Q4H PRN Constipation Metoclopramide HCl 10 mg 10/22/18 01:01 Reglan PO Q6H PRN Nausea And Vomiting Ondansetron HCl 4 mg 10/22/18 01:01 Zofran IV Q8H PRN Nausea And Vomiting Pantoprazole Sodium 40 mg 10/23/18 15:15 10/24/18 11:06 Protonix PO 40 mg QDAY LEONID Administration Sodium Chloride 10 ml 10/22/18 01:01 Sodium Chloride Flush Syringe 10 Ml IV PRN PRN LINE FLUSH
[2018-10-24] MEDS: ATIVAN IV PRN (16:50)
[2018-10-25] MEDS: ATIVAN IV PRN ×2 (01:12→13:48)
[2018-10-25] MEDS ORDERED: DOBUTamine 100 MG in D5W 92 ML IV ONE (06:19)
[2018-10-25] MEDS: ASPIRIN PO SCH (11:22)
[2018-10-25] MEDS: LOVENOX SUB-Q SCH (11:22)
[2018-10-25] MEDS: KEPPRA PO SCH (11:23)
[2018-10-25] MEDS: PROTONIX PO SCH (11:23)
[2018-10-25 12:24] VITALS: BP 140/95
--- NOTE | 2018-10-26 02:26 | Treadmill Report ---
ORDERING PHYSICIAN: Leigh Newman MD FINDINGS: There is no scintigraphic evidence of myocardial ischemia. The left ventricle is normal in size and systolic function. The left ventricular ejection fraction is measured at 55%. There is normal wall motion and wall thickening on gated imaging. CONCLUSION: Normal perfusion scan. JOB# [id number] AALIYAH/NTS
--- NOTE | 2018-11-21 12:02 | Discharge Summary ---
Providers - Providers Date of Admission: 10/22/18 01:01 Attending physician: RYLEE RICE MD 10/22/18 01:01 Occupational Therapy Evaluate and Treat [CONS] Routine Comment: Reason For Exam: Neuro deficits Physical Therapy Evaluation and Treat [CONS] Routine Comment: Reason For Exam: Neuro deficits 10/22/18 06:20 Consult to Physician [CONS] Routine Comment: Consulting Provider: IDLSHAD YOO Physician Instructions: Reason For Exam: rue weakness [facility] Condition: Stable Hospital course: please see discharge summary earlier signed Disposition: DC-01 TO HOME OR SELFCARE Core Measure Documentation - Palliative Care Palliative Care/ Comfort Measures: Not Applicable - Core Measures Any of the following diagnoses?: none Exam - Constitutional Vitals: Temp Pulse Resp BP Pulse Ox 98.2 F 58 L 20 140/95 96 10/25/18 12:15 10/25/18 13:00 10/25/18 12:15 10/25/18 12:15 10/25/18 12:15 Plan Follow up with: DILSHAD YOO MD [Staff Physician] - 7 Days [place] RICK BOURGEOIS MD [Primary Care Provider] - 7 Days Prescriptions: Melatonin [Melatonin 10MG CAP] 10 mg PO QHS #30 capsule levETIRAcetam [Keppra TAB] 750 mg PO BID #60 tablet
--- NOTE | 2018-11-27 13:29 | Discharge Summary ---
Providers - Providers Date of Admission: 10/22/18 01:01 Attending physician: RYLEE RICE MD 10/22/18 01:01 Occupational Therapy Evaluate and Treat [CONS] Routine Comment: Reason For Exam: Neuro deficits Physical Therapy Evaluation and Treat [CONS] Routine Comment: Reason For Exam: Neuro deficits 10/22/18 06:20 Consult to Physician [CONS] Routine Comment: Consulting Provider: DILSHAD YOO Physician Instructions: Reason For Exam: rue weakness [facility] Reason for admission: seizure Condition: Stable Hospital course: 58-year-old woman with a history of hypertension, bipolar her previous family member however these family members at bedside denies that she has any medical problems, she was brought to the emergency room complaining of chest pain. Pain is in the epigastric area which she described as someone standing on her chest, constant, intensity 5/10, no radiation, can't identify exacerbating factors. Admits to shortness of breath, no nausea vomiting, diaphoresis or palpitation. Also complained that the right arm has been weak. Family members state that she became confused and started having these jerking of the upper body. The patient if she had any seizures today, she started shaking the left arm profusely, she was alert during this episode spinal radiculopathy of right C5-6 new onset seizure Chest pain, secondary to costochondritis Hypertension Disposition: TO HOME OR SELFCARE Time spent for discharge: 35 mins Core Measure Documentation - Palliative Care Palliative Care/ Comfort Measures: Not Applicable - Core Measures Any of the following diagnoses?: none Exam - Physical Exam Narrative exam: General appearance: Present: no acute distress - EENT Eyes: Present: PERRL, EOM intact ENT: hearing intact, clear oral mucosa - Neck Neck: Present: supple - Respiratory Respiratory effort: normal Respiratory: bilateral: CTA - Cardiovascular Rhythm: regular Heart Sounds: Present: S1 & S2 - Extremities Extremities: No edema - Abdominal General gastrointestinal: soft, non-tender, normal bowel sounds - Integumentary Integumentary: Present: clear, warm, dry - Neurologic Neurologic: CNII-XII intact - Constitutional Vitals: Temp Pulse Resp BP Pulse Ox 98.2 F 58 L 20 140/95 96 10/25/18 12:15 10/25/18 13:00 10/25/18 12:15 10/25/18 12:15 10/25/18 12:15 Plan Activity: advance as tolerated, fall precautions Diet: low fat Special Instructions: record daily weights Follow up with: DILSHAD YOO MD [Staff Physician] - 7 Days [place] RICK BOURGEOIS MD [Primary Care Provider] - 7 Days Prescriptions: Melatonin [Melatonin 10MG CAP] 10 mg PO QHS #30 capsule levETIRAcetam [Keppra TAB] 750 mg PO BID #60 tablet
== END 2018-10-25 15:47 | disposition home or self-care (01) | DRG 101 ==
LOC: ED 22:28 → 4A 10-22 01:01
PROVIDERS: ADMIT Internal Medicine; ATTEND Internal Medicine
DX: R56.9 Unspecified convulsions (principal); M50.321 Other cervical disc degeneration at C4-C5 level; R07.9 Chest pain, unspecified; I10 Essential (primary) hypertension; M48.02 Spinal stenosis, cervical region; F31.9 Bipolar disorder, unspecified; Z82.49 Family history of ischemic heart disease and other diseases of the circulatory system
CPT/HCPCS: 36415; 70450; 70544; 70551; 71045; 72141; 78452; 80053; 80061; 80307; 80320; 81001; 82140; 82550; 82553; 84484; 85025; 93005; 93010; 93017; 93306; 96374; G0378; A9270-GY; A9502; G0480; J1250; J1650; J1953; J2060; J7030